=== PATIENT | male | born 1960 | race Caucasian/White ===

== ENCOUNTER 2016-08-12 17:28 | Emergency (ER) | payer MEDICARE ==
[~2016-08-12] VITALS: Ht 157.5 cm; Wt 67.0 kg
[~2016-08-12 17:28] MED LIST: AMLO10TA2 PO; AMLO10TA4 PO; ASPI-621 PO; BACL-19 PO; BRIM5DRO2 OP; BRIN8DRO EACHEYE; Brimonidine Tartrate/Timolol (Combigan Eye Drops) OP; Brinzolamide/Brimonid Tart (Simbrinza 1%-0.2% Eye Drops) EACHEYE; CHOL500015 PO; CIPR500T87 PO; CLOP75TA22 PO; CYAN10008 PO; DOXA8TAB63 PO; GABA100C PO; HYDR-3144 PO; INSU100V8 SQ; LEVO500T33 PO; LIDO30CR TP; LISI-167 PO; LISI-170 PO; LOSA100T6 PO; LOSA50TA6 PO; METO200T3 PO; METO25TA35 PO; METO50TA82 PO; MOXI3DRO2 EACHEYE; ONDA8TAB12 PO; POLY17PO5 PO; SEVE800T8 PO; SPIR50TA PO; TRAM50TA2 PO; TRAV5DRO EACHEYE; TRAV5DRO OP; ZOLP-413 PO
[2016-08-12] MEDS ORDERED: HYDROmorphone 1 MG/ML, 1ML ONE ×2 (17:53→18:07)
[2016-08-12] MEDS ORDERED: ONDANSETRON 2MG/ML, 2ML ONE (17:53)
[2016-08-12] MEDS ORDERED: SODIUM CHLORIDE FLUSH 10ML SYR IVF ONE (18:00)
[2016-08-12] MEDS ORDERED: HYDROmorphone 1 MG/ML, 1ML IVPush ONE (18:00)
[2016-08-12] MEDS ORDERED: OMEP-110 PO (18:12)
[2016-08-12] MEDS ORDERED: HYDR-3343 PO (18:13)
[2016-08-12 18:19] LABS: HEMOGLOBIN 10.4 g/dL (13.7-18.0)
[2016-08-12 18:25] LABS: BLOOD UREA NITROGEN 22 mg/dL (7-18)
[2016-08-12] MEDS ORDERED: HYDROmorphone 2 MG/ML, 1ML IVPush ONE (18:30)
[2016-08-12] MEDS ORDERED: ONDANSETRON 2MG/ML, 2ML IVPush ONE (18:30)
[2016-08-12] MEDS ORDERED: DIAZEPAM 5 MG/ML, 2ML ONE (19:00)
[2016-08-12] MEDS ORDERED: FENTANYL PF 100 MCG/2ML ONE (19:00)
[2016-08-12] MEDS ORDERED: LABETALOL 5MG/ML, 20ML IVPush ONE (19:00)
[2016-08-12] MEDS ORDERED: FENTANYL PF 100 MCG/2ML IVPush ONE (19:00)
[2016-08-12] MEDS ORDERED: DIAZEPAM 5 MG/ML, 2ML IVPush ONE (19:00)
[2016-08-12] MEDS ORDERED: LABETALOL 5MG/ML, 20ML ONE (19:34)
[2016-08-12] MEDS ORDERED: hydrALAzine 20 MG/ML, 1ML ONE (21:56)
[2016-08-12] MEDS ORDERED: hydrALAzine 20 MG/ML, 1ML IV ONE (22:00)
[2016-08-12 22:46] VITALS: BP 165/73
== END 2016-08-12 22:50 | disposition home or self-care (01) ==
LOC: ED 21:22
DX: M54.16 Radiculopathy, lumbar region (principal); M79.604 Pain in right leg; E11.22 Type 2 diabetes mellitus with diabetic chronic kidney disease; I13.2 Hypertensive heart and chronic kidney disease with heart failure and with stage 5 chronic kidney disease, or end stage renal disease; I50.9 Heart failure, unspecified; N18.6 End stage renal disease; I25.10 Atherosclerotic heart disease of native coronary artery without angina pectoris; I25.2 Old myocardial infarction; E11.40 Type 2 diabetes mellitus with diabetic neuropathy, unspecified; Z99.2 Dependence on renal dialysis
CPT/HCPCS: 36415; 70450; 72131; 80048; 82040; 83735; 85025; 96374; 96375; 96376; 99285; J1170; J2405; J3010; J3360

== ENCOUNTER 2016-10-08 17:29 | Emergency (ER) | payer MEDICAID, MEDICARE ==
[~2016-10-08] VITALS: Ht 157.5 cm; Wt 69.3 kg
[~2016-10-08 17:29] MED LIST changes: +HYDR-3343 PO; +OMEP-110 PO
[2016-10-08] MEDS ORDERED: SODIUM CHLORIDE FLUSH 10ML SYR IVF ONE (18:00)
[2016-10-08] MEDS ORDERED: ONDANSETRON 2MG/ML, 2ML IVPush ONE (18:00)
[2016-10-08 18:26] LABS: ASPARTATE AMINO TRANSFERASE 20 U/L (15-37); BLOOD UREA NITROGEN 43 mg/dL (7-18)
[2016-10-08 18:31] LABS: IS PT STATUS REG ER OR PRE ER? YES
[2016-10-08] MEDS ORDERED: ONDANSETRON 2MG/ML, 2ML ONE (19:34)
[2016-10-08 22:15] VITALS: BP 164/65
== END 2016-10-08 22:27 | disposition home or self-care (01) ==
LOC: ED 21:47
DX: I13.2 Hypertensive heart and chronic kidney disease with heart failure and with stage 5 chronic kidney disease, or end stage renal disease (principal); N18.6 End stage renal disease; I50.9 Heart failure, unspecified; R25.1 Tremor, unspecified; E11.40 Type 2 diabetes mellitus with diabetic neuropathy, unspecified; E11.22 Type 2 diabetes mellitus with diabetic chronic kidney disease; I25.2 Old myocardial infarction; Z88.8 Allergy status to other drugs, medicaments and biological substances
CPT/HCPCS: 36415; 71020; 80053; 83605; 84145; 84484; 85025; 87040; 93005; 96374; 99285; J2405

== ENCOUNTER → 2016-11-03 | Outpatient (CLI) | payer MEDICAID, MEDICARE ==
[~2016-11-03] MED LIST changes: +AMINOPHYLLINE 25 MG/ML, 10ML ONE; +REGADENOSON 0.4 MG/5 ML SYRINGE ONE
== END | disposition home or self-care (01) ==
LOC: CFH 06:37
PROVIDERS: ATTEND Nurse Practitioner Family
DX: I25.10 Atherosclerotic heart disease of native coronary artery without angina pectoris (principal); I08.1 Rheumatic disorders of both mitral and tricuspid valves; I10 Essential (primary) hypertension
CPT/HCPCS: 78452; 93017; 93306; A9502; J0280; J2785

== ENCOUNTER 2017-03-01 17:45 | Emergency (ER) | payer MEDICARE ==
[~2017-03-01] VITALS: Ht 157.5 cm; Wt 66.9 kg
[~2017-03-01 17:45] MED LIST changes: -AMINOPHYLLINE 25 MG/ML, 10ML ONE; -CLOP75TA22 PO; +CLOP75TA52 PO; +CYAN100072 PO; -CYAN10008 PO; -HYDR-3144 PO; +HYDR-3245 PO; -LEVO500T33 PO; +LEVO500T47 PO; -METO200T3 PO; +METO200T5 PO; -REGADENOSON 0.4 MG/5 ML SYRINGE ONE
[2017-03-01] MEDS ORDERED: SODIUM CHLORIDE FLUSH 10ML SYR IVF ONE (18:30)
[2017-03-01 18:50] LABS: HEMATOCRIT 34.4 % (39.2-51.8); HEMOGLOBIN 11.4 g/dL (13.7-18.0); WHITE BLOOD COUNT 6.1 x10^3/uL (3.4-10)
[2017-03-01 18:55] LABS: ASPARTATE AMINO TRANSFERASE 19 U/L (15-37); BLOOD UREA NITROGEN 22 mg/dL (7-18)
[2017-03-01] MEDS ORDERED: LIDOCAINE 1%, 20ML ONE (20:05)
[2017-03-01 20:45] VITALS: BP 168/74
== END 2017-03-01 20:48 | disposition home or self-care (01) ==
LOC: ED 20:40
DX: I87.2 Venous insufficiency (chronic) (peripheral) (principal); I13.0 Hypertensive heart and chronic kidney disease with heart failure and stage 1 through stage 4 chronic kidney disease, or unspecified chronic kidney disease; E11.22 Type 2 diabetes mellitus with diabetic chronic kidney disease; N18.9 Chronic kidney disease, unspecified; I50.9 Heart failure, unspecified; E87.5 Hyperkalemia; Z99.2 Dependence on renal dialysis; I25.2 Old myocardial infarction
CPT/HCPCS: 36415; 71010; 80053; 83880; 85025; 93005; 99285

== ENCOUNTER → 2017-04-13 | Outpatient (CLI) | payer MEDICARE | END | disposition home or self-care (01) | LOC: CVU 08:51 | PROVIDERS: ATTEND Internal Medicine Cardiovascular Disease | DX: I87.2 Venous insufficiency (chronic) (peripheral) (principal); L81.8 Other specified disorders of pigmentation | CPT/HCPCS: 93970 ==

== ENCOUNTER → 2017-07-22 | Outpatient (CLI) | payer MEDICARE ==
[~2017-07-22] MED LIST changes: +LIDOCAINE 1%, 20ML ONE; +METO200T47 PO; -METO200T5 PO
== END | disposition home or self-care (01) ==
LOC: RAD 12:00
PROVIDERS: ATTEND Family Medicine
DX: R18.8 Other ascites (principal); R14.0 Abdominal distension (gaseous)
CPT/HCPCS: 49083; J3490

== ENCOUNTER → 2017-08-26 | Outpatient (CLI) | payer MEDICARE ==
[~2017-08-26] MED LIST changes: -LIDOCAINE 1%, 20ML ONE; +LIDOCAINE-MPF 1%, 5ML ONE
== END ==
LOC: RAD 13:19
PROVIDERS: ATTEND Radiology Diagnostic Radiology
DX: R18.8 Other ascites (principal)
CPT/HCPCS: 49083

== ENCOUNTER → 2017-10-28 | Outpatient (CLI) | payer MEDICARE ==
[~2017-10-28] MED LIST changes: +LIDOCAINE-MPF 1%, 2ML ONE; -LIDOCAINE-MPF 1%, 5ML ONE
== END | disposition home or self-care (01) ==
LOC: RAD 13:32
PROVIDERS: ATTEND Physician Assistant
DX: N17.9 Acute kidney failure, unspecified (principal); I50.9 Heart failure, unspecified; R18.8 Other ascites
CPT/HCPCS: 49083; J3490

== ENCOUNTER 2017-11-02 20:52 | Emergency (ER) | payer MEDICARE ==
[~2017-11-02] VITALS: Ht 165.1 cm; Wt 63.0 kg
[~2017-11-02 20:52] MED LIST changes: -LIDOCAINE-MPF 1%, 2ML ONE
[2017-11-02] MEDS ORDERED: PROMETHAZINE 25 MG/ML, 1ML ONE (21:42)
[2017-11-02] MEDS ORDERED: MORPHINE SULFATE 4 MG/ML, 1ML ONE (21:43)
[2017-11-02] MEDS ORDERED: PROMETHAZINE 25 MG/ML, 1ML IM ONE (22:00)
[2017-11-02] MEDS ORDERED: MORPHINE SULFATE 4 MG/ML, 1ML IVPush PRN (22:00)
[2017-11-02 22:02] LABS: BASOPHILS # (AUTO) 0.02 x10^3/uL (0-0.1); BASOPHILS % (AUTO) 0 % (0-1); EOSINOPHILS # (AUTO) 0.01 x10^3/uL (0-0.4); EOSINOPHILS % (AUTO) 0 % (1-7); LYMPHOCYTES # (AUTO) 0.75 x10^3/uL (1-3.4); LYMPHOCYTES % (AUTO) 13 % (22-44); MD NO; MEAN CORPUSCULAR HEMOGLOBIN 32.9 pg (27.5-34.5); MEAN CORPUSCULAR HGB CONC 33.4 g/dL (33.2-36.2); MEAN CORPUSCULAR VOLUME 98.6 fL (81-97); MEAN PLATELET VOLUME 7.8 fL (7.4-10.4); MONOCYTES # (AUTO) 0.37 x10^3/uL (0.2-0.8); MONOCYTES % (AUTO) 7 % (2-9); NEUTROPHILS # (AUTO) 4.57 x10^3/uL (1.8-6.8); NEUTROPHILS % (AUTO) 80 % (42-75); PLATELET COUNT 151 x10^3/uL (130-400); RED BLOOD COUNT 3.35 x10^6/uL (4.38-5.82); RED CELL DISTRIBUTION WIDTH 15.4 % (9.4-14.8)
[2017-11-02 22:17] LABS: ALANINE AMINOTRANSFERASE 20 U/L (12-78); ALBUMIN 3.7 g/dL (3.4-5.0); ANION GAP 11 mmol/L (5-15); CALCIUM 8.3 mg/dL (8.5-10.1); CHLORIDE 93 mmol/L (98-107)
[2017-11-02 22:19] LABS: ALKALINE PHOSPHATASE 133 U/L (45-117); BILIRUBIN,TOTAL 0.5 mg/dL (0.2-1.0); TOTAL PROTEIN 7.5 g/dL (6.4-8.2)
[2017-11-02] MEDS ORDERED: hydrALAzine 20 MG/ML, 1ML ONE (22:57)
[2017-11-02] MEDS ORDERED: hydrALAzine 20 MG/ML, 1ML IV ONE (23:00)
[2017-11-02] MEDS ORDERED: OXYC10TA6 PO (23:13)
[2017-11-02] MEDS ORDERED: ATOR20TA PO (23:13)
[2017-11-02] MEDS ORDERED: FLUO20CA8 PO (23:13)
[2017-11-02] MEDS ORDERED: CARV3.1212 PO (23:13)
[2017-11-02] MEDS ORDERED: ASPI-515 PO (23:13)
[2017-11-03 00:10] VITALS: BP 167/67
== END 2017-11-03 00:21 | disposition home or self-care (01) ==
LOC: ED 22:02
DX: I13.2 Hypertensive heart and chronic kidney disease with heart failure and with stage 5 chronic kidney disease, or end stage renal disease (principal); R11.2 Nausea with vomiting, unspecified; E11.22 Type 2 diabetes mellitus with diabetic chronic kidney disease; N18.6 End stage renal disease; I50.9 Heart failure, unspecified; I25.2 Old myocardial infarction; I25.10 Atherosclerotic heart disease of native coronary artery without angina pectoris; E11.40 Type 2 diabetes mellitus with diabetic neuropathy, unspecified; E87.5 Hyperkalemia; E11.21 Type 2 diabetes mellitus with diabetic nephropathy; Z99.2 Dependence on renal dialysis; Z88.8 Allergy status to other drugs, medicaments and biological substances
CPT/HCPCS: 36415; 70450; 71045; 80053; 83690; 85025; 93005; 96372; 96374; 96375; 99285; J0360; J2550

== ENCOUNTER 2017-11-03 14:08 | Inpatient (IN) | payer MEDICARE ==
[~2017-11-03] VITALS: Ht 154.9 cm; Wt 63.0 kg
[~2017-11-03 14:08] MED LIST changes: +ASPI-515 PO; +ATOR20TA PO; +CARV3.1212 PO; +FLUO20CA8 PO; +OXYC10TA6 PO
[2017-11-03] MEDS ORDERED: METOCLOPRAMIDE 5 MG/ML, 2ML ONE (14:38)
[2017-11-03] MEDS ORDERED: DIPHENHYDRAMINE 50 MG/ML, 1ML ONE (14:38)
[2017-11-03] MEDS ORDERED: SODIUM CHLORIDE 0.9% 1,000ML IVBOLUS ONE (15:00)
[2017-11-03] MEDS ORDERED: DIPHENHYDRAMINE 50 MG/ML, 1ML IVPush ONE (15:00)
[2017-11-03] MEDS ORDERED: METOCLOPRAMIDE 5 MG/ML, 2ML IVPush ONE (15:00)
[2017-11-03 15:10] LABS: BASOPHILS # (AUTO) 0.01 x10^3/uL (0-0.1); BASOPHILS % (AUTO) 0 % (0-1); EOSINOPHILS # (AUTO) 0.01 x10^3/uL (0-0.4); EOSINOPHILS % (AUTO) 0 % (1-7); LYMPHOCYTES # (AUTO) 0.61 x10^3/uL (1-3.4); LYMPHOCYTES % (AUTO) 10 % (22-44); MD NO; MEAN CORPUSCULAR HEMOGLOBIN 33.3 pg (27.5-34.5); MEAN CORPUSCULAR HGB CONC 33.8 g/dL (33.2-36.2); MEAN CORPUSCULAR VOLUME 98.8 fL (81-97); MEAN PLATELET VOLUME 8.2 fL (7.4-10.4); MONOCYTES # (AUTO) 0.27 x10^3/uL (0.2-0.8); MONOCYTES % (AUTO) 4 % (2-9); NEUTROPHILS # (AUTO) 5.53 x10^3/uL (1.8-6.8); NEUTROPHILS % (AUTO) 86 % (42-75); PLATELET COUNT 156 x10^3/uL (130-400); RED BLOOD COUNT 3.26 x10^6/uL (4.38-5.82); RED CELL DISTRIBUTION WIDTH 15.4 % (9.4-14.8)
[2017-11-03 15:19] LABS: ALANINE AMINOTRANSFERASE 19 U/L (12-78); ALBUMIN 3.6 g/dL (3.4-5.0); ANION GAP 11 mmol/L (5-15); CALCIUM 8.9 mg/dL (8.5-10.1); CHLORIDE 95 mmol/L (98-107); CREATININE 5.67 mg/dL (0.7-1.3)
[2017-11-03 15:23] LABS: ALKALINE PHOSPHATASE 124 U/L (45-117); BILIRUBIN,TOTAL 0.6 mg/dL (0.2-1.0); TOTAL PROTEIN 7.6 g/dL (6.4-8.2); TROPONIN I 0.069 ng/mL (0.000-0.045)
[2017-11-03] MEDS ORDERED: LABETALOL 5MG/ML, 20ML IVPush ONE (17:00)
[2017-11-03] MEDS ORDERED: LABETALOL 5MG/ML, 20ML ONE (17:02)
[2017-11-03] MEDS: MORPHINE SULFATE 4 MG/ML, 1ML IVPush PRN ×2 (17:03→17:43)
[2017-11-03] MEDS ORDERED: MORPHINE SULFATE 4 MG/ML, 1ML ONE ×2 (17:03→17:41)
[2017-11-03] MEDS ORDERED: LISINOPRIL 20 MG TABLET PO ONE (18:00)
[2017-11-03] MEDS ORDERED: POLYETHYLENE GLYCOL 17 GM PACKET PO PRN (18:00)
[2017-11-03 18:24] LABS: FREE T4 (FREE THYROXINE) 1.18 ng/dL (0.76-1.46); TROPONIN I 0.075 ng/mL (0.000-0.045)
[2017-11-03 18:30] LABS: INTERNATIONAL NORMALIZED RATIO 1.16 (0.93-1.1); PROTHROMBIN TIME 11.9 Seconds (9.6-11.5)
[2017-11-03 18:44] LABS: THYROID STIMULATING HORMONE 1.71 mIU/L (0.358-3.740)
[2017-11-03] MEDS ORDERED: LISINOPRIL 20 MG TABLET ONE (18:52)
[2017-11-03] MEDS ORDERED: HEPARIN 5,000 UNITS/ML, 1ML ONE (18:52)
[2017-11-03] MEDS: HEPARIN 5,000 UNITS/ML, 1ML SQ SCH (18:54)
[2017-11-03 19:49] VITALS: BP 196/82
[2017-11-03] MEDS: DOXAZOSIN 2MG TABLET PO SCH (20:37)
[2017-11-03] MEDS: ATORVASTATIN 20 MG TABLET PO SCH (20:37)
[2017-11-03] MEDS: hydrALAzine 20 MG/ML, 1ML IV PRN (20:38)
[2017-11-03 20:42] VITALS: BP 192/79
[2017-11-03] MEDS ORDERED: CARVEDILOL 3.125 MG TABLET PO SCH (21:00)
[2017-11-03] MEDS ORDERED: LISINOPRIL 20 MG TABLET PO SCH (21:00)
[2017-11-03] MEDS: ONDANSETRON 2MG/ML, 2ML IVPush PRN (21:14)
[2017-11-03 21:56] VITALS: BP 195/77
[2017-11-04] VITALS (11 sets, daily range): BP systolic 161–197; BP diastolic 52–74
[2017-11-04] MEDS: LABETALOL 5MG/ML, 20ML IVPush PRN ×3 (00:48→16:40)
[2017-11-04] MEDS: HEPARIN 5,000 UNITS/ML, 1ML SQ SCH ×3 (01:48→17:40)
[2017-11-04] MEDS: hydrALAzine 20 MG/ML, 1ML IV PRN ×3 (04:32→13:30)
[2017-11-04] MEDS ORDERED: MORPHINE SULFATE 4 MG/ML, 1ML ONE (05:00)
[2017-11-04] MEDS ORDERED: MORPHINE SULFATE 4 MG/ML, 1ML IVPush ONE ×2 (05:00→12:09)
[2017-11-04 05:45] LABS: BASOPHILS # (AUTO) 0.02 x10^3/uL (0-0.1); BASOPHILS % (AUTO) 0 % (0-1); EOSINOPHILS # (AUTO) 0.02 x10^3/uL (0-0.4); EOSINOPHILS % (AUTO) 0 % (1-7); LYMPHOCYTES # (AUTO) 0.91 x10^3/uL (1-3.4); LYMPHOCYTES % (AUTO) 14 % (22-44); MD NO; MEAN CORPUSCULAR HEMOGLOBIN 33.3 pg (27.5-34.5); MEAN CORPUSCULAR HGB CONC 33.8 g/dL (33.2-36.2); MEAN CORPUSCULAR VOLUME 98.6 fL (81-97); MEAN PLATELET VOLUME 7.9 fL (7.4-10.4); MONOCYTES # (AUTO) 0.44 x10^3/uL (0.2-0.8); MONOCYTES % (AUTO) 7 % (2-9); NEUTROPHILS # (AUTO) 5.36 x10^3/uL (1.8-6.8); NEUTROPHILS % (AUTO) 79 % (42-75); PLATELET COUNT 135 x10^3/uL (130-400); RED BLOOD COUNT 3.22 x10^6/uL (4.38-5.82); RED CELL DISTRIBUTION WIDTH 15.6 % (9.4-14.8)
[2017-11-04 05:56] LABS: CHLORIDE 94 mmol/L (98-107)
[2017-11-04] MEDS ORDERED: hydrALAzine 20 MG/ML, 1ML IV ONE (06:00)
[2017-11-04 06:13] LABS: ALANINE AMINOTRANSFERASE 20 U/L (12-78); ALBUMIN 3.5 g/dL (3.4-5.0); ALKALINE PHOSPHATASE 119 U/L (45-117); ANION GAP 11 mmol/L (5-15); BILIRUBIN,TOTAL 0.7 mg/dL (0.2-1.0); CALCIUM 8.3 mg/dL (8.5-10.1); TOTAL PROTEIN 7.4 g/dL (6.4-8.2)
[2017-11-04] MEDS: ONDANSETRON 2MG/ML, 2ML IVPush PRN ×2 (06:16→14:20)
[2017-11-04] MEDS: OXYcodone IR 5MG TABLET PO SCH ×3 (08:14→21:29)
[2017-11-04] MEDS: SEVELAMER CARBONATE 800MG TAB PO SCH ×4 (08:19→17:00)
[2017-11-04] MEDS: FLUOXETINE HCL 20 MG CAPSULE PO SCH (08:20)
[2017-11-04] MEDS: SENNA/DOCUSATE TABLET PO SCH (08:20)
[2017-11-04] MEDS: ASPIRIN 81 MG TABLET EC PO SCH (08:20)
[2017-11-04] MEDS: ONDANSETRON ODT 4 MG PO PRN (08:22)
[2017-11-04] MEDS ORDERED: LISINOPRIL 20 MG TABLET PO SCH (09:00)
[2017-11-04] MEDS: INSULIN LISPRO 100 UNITS/ML, PEN SQ-INSULIN SCH ×3 (09:31→21:31)
[2017-11-04] MEDS: CARVEDILOL 25 MG TABLET PO SCH ×2 (11:34→21:29)
[2017-11-04] MEDS: AMLODIPINE 5 MG TABLET PO SCH (11:36)
[2017-11-04] MEDS ORDERED: morphine SULFATE 10 MG/ML, 1ML ONE (12:10)
[2017-11-04] MEDS ORDERED: DIPHENHYDRAMINE 50 MG/ML, 1ML IVPush ONE (15:30)
[2017-11-04] MEDS ORDERED: KETOROLAC 30 MG/1 ML IM SCH (15:30)
[2017-11-04] MEDS ORDERED: METOCLOPRAMIDE 5 MG/ML, 2ML IVPush ONE (15:30)
[2017-11-04] MEDS ORDERED: MORPHINE SULFATE 4 MG/ML, 1ML IVPush PRN (15:30)
[2017-11-04] MEDS ORDERED: KETOROLAC 30 MG/1 ML IM ONE (15:30)
[2017-11-04] MEDS: ISOSORBIDE MONONITRATE ER 30 MG TABLET PO SCH (15:48)
[2017-11-04] MEDS ORDERED: LORazepam 2 MG/ML, 1ML IVPush ONE (17:30)
[2017-11-04] MEDS: DOXAZOSIN 2MG TABLET PO SCH (21:28)
[2017-11-04] MEDS: LOSARTAN 50MG TABLET PO SCH (21:29)
[2017-11-04] MEDS: ATORVASTATIN 20 MG TABLET PO SCH (21:29)
[2017-11-05] VITALS (7 sets, daily range): BP systolic 93–189; BP diastolic 53–79
[2017-11-05] MEDS: HEPARIN 5,000 UNITS/ML, 1ML SQ SCH ×3 (01:59→18:23)
[2017-11-05 06:26] LABS: BASOPHILS # (AUTO) 0.01 x10^3/uL (0-0.1); BASOPHILS % (AUTO) 0 % (0-1); EOSINOPHILS # (AUTO) 0.01 x10^3/uL (0-0.4); EOSINOPHILS % (AUTO) 0 % (1-7); LYMPHOCYTES # (AUTO) 0.81 x10^3/uL (1-3.4); LYMPHOCYTES % (AUTO) 11 % (22-44); MD NO; MEAN CORPUSCULAR HEMOGLOBIN 32.7 pg (27.5-34.5); MEAN CORPUSCULAR VOLUME 99.1 fL (81-97); MEAN PLATELET VOLUME 8.3 fL (7.4-10.4); MONOCYTES # (AUTO) 0.49 x10^3/uL (0.2-0.8); MONOCYTES % (AUTO) 7 % (2-9); NEUTROPHILS % (AUTO) 81 % (42-75); PLATELET COUNT 136 x10^3/uL (130-400); RED BLOOD COUNT 3.17 x10^6/uL (4.38-5.82); RED CELL DISTRIBUTION WIDTH 15.5 % (9.4-14.8)
[2017-11-05 06:38] LABS: ALBUMIN 3.6 g/dL (3.4-5.0); ANION GAP 10 mmol/L (5-15); CALCIUM 8.7 mg/dL (8.5-10.1); CHLORIDE 98 mmol/L (98-107)
[2017-11-05 06:42] LABS: ALANINE AMINOTRANSFERASE 19 U/L (12-78); ALKALINE PHOSPHATASE 115 U/L (45-117); BILIRUBIN,TOTAL 0.7 mg/dL (0.2-1.0); CREATININE 4.94 mg/dL (0.7-1.3); TOTAL PROTEIN 7.3 g/dL (6.4-8.2)
[2017-11-05] MEDS: CARVEDILOL 25 MG TABLET PO SCH ×2 (07:46→21:00)
[2017-11-05] MEDS: AMLODIPINE 5 MG TABLET PO SCH (07:47)
[2017-11-05] MEDS: SEVELAMER CARBONATE 800MG TAB PO SCH ×3 (08:00→18:22)
[2017-11-05] MEDS: ISOSORBIDE MONONITRATE ER 30 MG TABLET PO SCH (09:00)
[2017-11-05] MEDS: OXYcodone IR 5MG TABLET PO SCH ×3 (09:00→20:58)
[2017-11-05] MEDS: SENNA/DOCUSATE TABLET PO SCH (09:00)
[2017-11-05] MEDS: ASPIRIN 81 MG TABLET EC PO SCH (09:00)
[2017-11-05] MEDS: ONDANSETRON ODT 4 MG PO PRN (09:17)
[2017-11-05] MEDS: INSULIN LISPRO 100 UNITS/ML, PEN SQ-INSULIN SCH ×4 (10:39→21:00)
[2017-11-05] MEDS: FLUOXETINE HCL 20 MG CAPSULE PO SCH (10:40)
[2017-11-05] MEDS: hydrALAzine 20 MG/ML, 1ML IV PRN (11:09)
[2017-11-05] MEDS ORDERED: morphine SULFATE/PF 0.5 MG/ML, 10ML IV PRN (11:30)
[2017-11-05] MEDS: LABETALOL 5MG/ML, 20ML IVPush PRN (12:33)
[2017-11-05] MEDS: DOXAZOSIN 2MG TABLET PO SCH (20:57)
[2017-11-05] MEDS: ATORVASTATIN 20 MG TABLET PO SCH (20:57)
[2017-11-05] MEDS: LOSARTAN 50MG TABLET PO SCH (20:58)
[2017-11-06] VITALS (7 sets, daily range): BP systolic 145–186; BP diastolic 57–69
[2017-11-06] MEDS: ONDANSETRON 2MG/ML, 2ML IVPush PRN (01:12)
[2017-11-06] MEDS: HEPARIN 5,000 UNITS/ML, 1ML SQ SCH ×3 (02:26→17:31)
[2017-11-06 05:12] LABS: BASOPHILS % (AUTO) 0 % (0-1); EOSINOPHILS # (AUTO) 0.02 x10^3/uL (0-0.4); EOSINOPHILS % (AUTO) 0 % (1-7); LYMPHOCYTES # (AUTO) 0.61 x10^3/uL (1-3.4); LYMPHOCYTES % (AUTO) 8 % (22-44); MD NO; MEAN CORPUSCULAR HEMOGLOBIN 33.2 pg (27.5-34.5); MEAN CORPUSCULAR HGB CONC 33.7 g/dL (33.2-36.2); MEAN CORPUSCULAR VOLUME 98.6 fL (81-97); MEAN PLATELET VOLUME 8.6 fL (7.4-10.4); MONOCYTES # (AUTO) 0.46 x10^3/uL (0.2-0.8); MONOCYTES % (AUTO) 6 % (2-9); NEUTROPHILS # (AUTO) 6.47 x10^3/uL (1.8-6.8); NEUTROPHILS % (AUTO) 86 % (42-75); PLATELET COUNT 131 x10^3/uL (130-400); RED BLOOD COUNT 3.25 x10^6/uL (4.38-5.82); RED CELL DISTRIBUTION WIDTH 15.4 % (9.4-14.8)
[2017-11-06 05:22] LABS: CHLORIDE 95 mmol/L (98-107)
[2017-11-06 05:34] LABS: ALANINE AMINOTRANSFERASE 20 U/L (12-78); ALBUMIN 3.4 g/dL (3.4-5.0); ALKALINE PHOSPHATASE 109 U/L (45-117); ANION GAP 12 mmol/L (5-15); BILIRUBIN,TOTAL 0.8 mg/dL (0.2-1.0); CALCIUM 8.5 mg/dL (8.5-10.1); CREATININE 5.74 mg/dL (0.7-1.3); TOTAL PROTEIN 7.1 g/dL (6.4-8.2)
[2017-11-06] MEDS: CARVEDILOL 25 MG TABLET PO SCH ×2 (08:37→21:00)
[2017-11-06] MEDS: INSULIN LISPRO 100 UNITS/ML, PEN SQ-INSULIN SCH ×4 (08:48→21:19)
[2017-11-06] MEDS: SEVELAMER CARBONATE 800MG TAB PO SCH ×2 (08:49→13:45)
[2017-11-06] MEDS: ASPIRIN 81 MG TABLET EC PO SCH (08:49)
[2017-11-06] MEDS: SENNA/DOCUSATE TABLET PO SCH (08:49)
[2017-11-06] MEDS: OXYcodone IR 5MG TABLET PO SCH ×3 (08:50→21:19)
[2017-11-06] MEDS: AMLODIPINE 5 MG TABLET PO SCH (08:50)
[2017-11-06] MEDS: FLUOXETINE HCL 20 MG CAPSULE PO SCH (08:51)
[2017-11-06] MEDS ORDERED: ISOSORBIDE MONONITRATE ER 30 MG TABLET PO SCH (09:00)
[2017-11-06] MEDS ORDERED: OMEPRAZOLE 20 MG CAPSULE.DR PO PRN ×2 (16:00→17:30)
[2017-11-06] MEDS ORDERED: SEVELAMER CARBONATE 800MG TAB ONE ×2 (17:16→17:17)
[2017-11-06] MEDS ORDERED: OXYcodone IR 5MG TABLET ONE (17:16)
[2017-11-06] MEDS ORDERED: ONDANSETRON ODT 4 MG PO PRN (17:30)
[2017-11-06] MEDS ORDERED: hydrALAzine 20 MG/ML, 1ML IV PRN (17:30)
[2017-11-06] MEDS ORDERED: morphine SULFATE/PF 0.5 MG/ML, 10ML IV PRN (18:00)
[2017-11-06] MEDS ORDERED: MORPHINE SULFATE 4 MG/ML, 1ML IVPush PRN (18:00)
[2017-11-06] MEDS ORDERED: ONDANSETRON 2MG/ML, 2ML IVPush PRN (18:00)
[2017-11-06] MEDS ORDERED: LABETALOL 5MG/ML, 20ML IVPush PRN (21:00)
[2017-11-06] MEDS: LOSARTAN 50MG TABLET PO SCH (21:17)
[2017-11-06] MEDS: ATORVASTATIN 20 MG TABLET PO SCH (21:18)
[2017-11-06] MEDS: DOXAZOSIN 2MG TABLET PO SCH (21:18)
[2017-11-06] MEDS: POLYETHYLENE GLYCOL 17 GM PACKET PO PRN (21:26)
[2017-11-07 00:37] VITALS: BP 167/75
[2017-11-07] MEDS: MORPHINE SULFATE 4 MG/ML, 1ML IV PRN ×3 (01:02→11:33)
[2017-11-07] MEDS: HEPARIN 5,000 UNITS/ML, 1ML SQ SCH ×2 (01:02→08:44)
[2017-11-07] MEDS ORDERED: ACETAMINOPHEN 500 MG TABLET PO ONE (03:30)
[2017-11-07 05:14] LABS: BASOPHILS # (AUTO) 0.02 x10^3/uL (0-0.1); BASOPHILS % (AUTO) 0 % (0-1); EOSINOPHILS # (AUTO) 0.03 x10^3/uL (0-0.4); EOSINOPHILS % (AUTO) 0 % (1-7); LYMPHOCYTES # (AUTO) 0.63 x10^3/uL (1-3.4); LYMPHOCYTES % (AUTO) 10 % (22-44); MD NO; MEAN CORPUSCULAR HGB CONC 34.9 g/dL (33.2-36.2); MEAN CORPUSCULAR VOLUME 97.3 fL (81-97); MEAN PLATELET VOLUME 8.6 fL (7.4-10.4); MONOCYTES # (AUTO) 0.39 x10^3/uL (0.2-0.8); MONOCYTES % (AUTO) 6 % (2-9); NEUTROPHILS # (AUTO) 5.51 x10^3/uL (1.8-6.8); NEUTROPHILS % (AUTO) 84 % (42-75); PLATELET COUNT 132 x10^3/uL (130-400); RED BLOOD COUNT 3.27 x10^6/uL (4.38-5.82); RED CELL DISTRIBUTION WIDTH 15.1 % (9.4-14.8)
[2017-11-07 05:26] LABS: ALBUMIN 3.3 g/dL (3.4-5.0); ANION GAP 12 mmol/L (5-15); CALCIUM 8.8 mg/dL (8.5-10.1); CHLORIDE 96 mmol/L (98-107)
[2017-11-07 05:32] LABS: ALANINE AMINOTRANSFERASE 18 U/L (12-78); ALKALINE PHOSPHATASE 104 U/L (45-117); BILIRUBIN,TOTAL 0.5 mg/dL (0.2-1.0); CREATININE 7.38 mg/dL (0.7-1.3); TOTAL PROTEIN 6.9 g/dL (6.4-8.2)
[2017-11-07 07:22] VITALS: BP 172/70
[2017-11-07] MEDS: INSULIN LISPRO 100 UNITS/ML, PEN SQ-INSULIN SCH ×4 (07:52→20:44)
[2017-11-07] MEDS: OXYcodone IR 5MG TABLET PO SCH ×3 (07:53→20:44)
[2017-11-07] MEDS: FLUOXETINE HCL 20 MG CAPSULE PO SCH (07:53)
[2017-11-07] MEDS: ASPIRIN 81 MG TABLET EC PO SCH (07:53)
[2017-11-07] MEDS: SENNA/DOCUSATE TABLET PO SCH (07:54)
[2017-11-07] MEDS: CARVEDILOL 25 MG TABLET PO SCH ×2 (08:39→20:44)
[2017-11-07 08:45] VITALS: BP 160/66
[2017-11-07] MEDS ORDERED: AMLODIPINE 5 MG TABLET PO SCH (09:00)
[2017-11-07] MEDS ORDERED: ISOSORBIDE MONONITRATE ER 30 MG TABLET PO SCH (09:00)
[2017-11-07 12:00] VITALS: BP 151/59
[2017-11-07] MEDS ORDERED: LIDOCAINE-MPF 1%, 2ML ONE (13:18)
[2017-11-07] MEDS: SEVELAMER CARBONATE 800MG TAB PO SCH (17:00)
[2017-11-07 20:00] VITALS: BP 157/66
[2017-11-07] MEDS: DOXAZOSIN 2MG TABLET PO SCH (20:42)
[2017-11-07] MEDS: LOSARTAN 50MG TABLET PO SCH (20:43)
[2017-11-07] MEDS: ATORVASTATIN 20 MG TABLET PO SCH (20:43)
[2017-11-07] MEDS: MINOXIDIL 2.5 MG TABLET PO SCH (20:48)
[2017-11-08] VITALS (9 sets, daily range): BP systolic 135–185; BP diastolic 56–72
[2017-11-08] MEDS: MORPHINE SULFATE 4 MG/ML, 1ML IV PRN ×2 (00:31→17:33)
[2017-11-08] MEDS: SEVELAMER CARBONATE 800MG TAB PO SCH ×4 (08:00→17:00)
[2017-11-08] MEDS ORDERED: NALOXONE 1 MG/ML, 2ML ONE (08:00)
[2017-11-08] MEDS: ASPIRIN 81 MG TABLET EC PO SCH (08:32)
[2017-11-08] MEDS: INSULIN LISPRO 100 UNITS/ML, PEN SQ-INSULIN SCH ×4 (08:38→21:01)
[2017-11-08] MEDS: OXYcodone IR 5MG TABLET PO SCH ×2 (08:39→16:00)
[2017-11-08] MEDS: MINOXIDIL 2.5 MG TABLET PO SCH (08:39)
[2017-11-08] MEDS: FLUOXETINE HCL 20 MG CAPSULE PO SCH (08:39)
[2017-11-08] MEDS: SENNA/DOCUSATE TABLET PO SCH (08:39)
[2017-11-08] MEDS: CARVEDILOL 25 MG TABLET PO SCH ×2 (08:43→20:46)
[2017-11-08] MEDS: ONDANSETRON ODT 4 MG PO SCH ×3 (12:30→22:55)
[2017-11-08] MEDS ORDERED: LIDOCAINE-MPF 1%, 2ML ONE (13:26)
[2017-11-08 16:02] LABS: GLUCOSE, CSF 89 mg/dL (40-80); TOTAL PROTEIN,CSF 625 mg/dL (15-45)
[2017-11-08] MEDS: HEPARIN 5,000 UNITS/ML, 1ML SQ SCH ×2 (17:00→22:47)
[2017-11-08] MEDS ORDERED: ONDANSETRON 2MG/ML, 2ML ONE (17:52)
[2017-11-08] MEDS ORDERED: ONDANSETRON 2MG/ML, 2ML IVPush PRN (18:00)
[2017-11-08] MEDS ORDERED: hydrALAzine 20 MG/ML, 1ML IV PRN (18:30)
[2017-11-08 18:38] LABS: BASOPHILS # (AUTO) 0.05 x10^3/uL (0-0.1); BASOPHILS % (AUTO) 1 % (0-1); EOSINOPHILS # (AUTO) 0.07 x10^3/uL (0-0.4); EOSINOPHILS % (AUTO) 1 % (1-7); LYMPHOCYTES # (AUTO) 1.07 x10^3/uL (1-3.4); LYMPHOCYTES % (AUTO) 16 % (22-44); MD NO; MEAN CORPUSCULAR HEMOGLOBIN 33.6 pg (27.5-34.5); MEAN CORPUSCULAR HGB CONC 34.4 g/dL (33.2-36.2); MEAN CORPUSCULAR VOLUME 97.5 fL (81-97); MEAN PLATELET VOLUME 9.1 fL (7.4-10.4); MONOCYTES # (AUTO) 0.43 x10^3/uL (0.2-0.8); MONOCYTES % (AUTO) 7 % (2-9); NEUTROPHILS # (AUTO) 4.96 x10^3/uL (1.8-6.8); NEUTROPHILS % (AUTO) 75 % (42-75); PLATELET COUNT 143 x10^3/uL (130-400); RED BLOOD COUNT 3.65 x10^6/uL (4.38-5.82); RED CELL DISTRIBUTION WIDTH 14.6 % (9.4-14.8)
[2017-11-08 18:44] LABS: ALANINE AMINOTRANSFERASE 16 U/L (12-78); ALBUMIN 3.7 g/dL (3.4-5.0); ANION GAP 15 mmol/L (5-15); CALCIUM 9.2 mg/dL (8.5-10.1); CHLORIDE 97 mmol/L (98-107); CREATININE 5.75 mg/dL (0.7-1.3)
[2017-11-08 18:48] LABS: ALKALINE PHOSPHATASE 123 U/L (45-117); BILIRUBIN,TOTAL 0.6 mg/dL (0.2-1.0); TOTAL PROTEIN 7.7 g/dL (6.4-8.2); TROPONIN I 0.037 ng/mL (0.000-0.045)
[2017-11-08] MEDS: ATORVASTATIN 20 MG TABLET PO SCH (20:46)
[2017-11-08] MEDS: LOSARTAN 50MG TABLET PO SCH (20:46)
[2017-11-08] MEDS: DOXAZOSIN 2MG TABLET PO SCH (20:46)
[2017-11-08] MEDS: CEFTRIAXONE PMX 2GM/50ML 50 ML IV SCH (21:01)
[2017-11-08] MEDS: ACYCLOVIR 600 MG in SODIUM CHLORIDE 0.9% 100 ML IV SCH (22:24)
[2017-11-08] MEDS ORDERED: ACETAMINOPHEN 325 MG TABLET PO PRN (23:00)
[2017-11-08] MEDS: POLYETHYLENE GLYCOL 17 GM PACKET PO PRN (23:06)
[2017-11-09 01:27] VITALS: BP 168/60
[2017-11-09 04:39] LABS: BASOPHILS # (AUTO) 0.01 x10^3/uL (0-0.1); BASOPHILS % (AUTO) 0 % (0-1); EOSINOPHILS # (AUTO) 0.02 x10^3/uL (0-0.4); EOSINOPHILS % (AUTO) 0 % (1-7); LYMPHOCYTES % (AUTO) 6 % (22-44); MD NO; MEAN CORPUSCULAR HEMOGLOBIN 32.8 pg (27.5-34.5); MEAN CORPUSCULAR HGB CONC 33.9 g/dL (33.2-36.2); MEAN CORPUSCULAR VOLUME 96.7 fL (81-97); MEAN PLATELET VOLUME 8.8 fL (7.4-10.4); MONOCYTES # (AUTO) 0.45 x10^3/uL (0.2-0.8); MONOCYTES % (AUTO) 5 % (2-9); NEUTROPHILS # (AUTO) 8.63 x10^3/uL (1.8-6.8); NEUTROPHILS % (AUTO) 89 % (42-75); PLATELET COUNT 146 x10^3/uL (130-400); RED CELL DISTRIBUTION WIDTH 15.3 % (9.4-14.8)
[2017-11-09 04:52] LABS: ALBUMIN 3.3 g/dL (3.4-5.0); ANION GAP 12 mmol/L (5-15); CALCIUM 8.5 mg/dL (8.5-10.1); CHLORIDE 96 mmol/L (98-107)
[2017-11-09 04:59] LABS: ALANINE AMINOTRANSFERASE 16 U/L (12-78); ALKALINE PHOSPHATASE 111 U/L (45-117); BILIRUBIN,TOTAL 0.9 mg/dL (0.2-1.0); CREATININE 7.04 mg/dL (0.7-1.3)
[2017-11-09] MEDS: ACYCLOVIR 600 MG in SODIUM CHLORIDE 0.9% 100 ML IV SCH (06:11)
[2017-11-09] MEDS: INSULIN LISPRO 100 UNITS/ML, PEN SQ-INSULIN SCH ×3 (07:00→16:00)
[2017-11-09 07:35] VITALS: BP 157/62
[2017-11-09] MEDS: SEVELAMER CARBONATE 800MG TAB PO SCH ×3 (08:01→17:00)
[2017-11-09] MEDS: ASPIRIN 81 MG TABLET EC PO SCH (08:02)
[2017-11-09] MEDS: FLUOXETINE HCL 20 MG CAPSULE PO SCH (08:02)
[2017-11-09] MEDS: CARVEDILOL 25 MG TABLET PO SCH (08:02)
[2017-11-09] MEDS: ONDANSETRON ODT 4 MG PO SCH ×2 (08:02→16:00)
[2017-11-09] MEDS: SENNA/DOCUSATE TABLET PO SCH (08:02)
[2017-11-09] MEDS: HEPARIN 5,000 UNITS/ML, 1ML SQ SCH ×2 (08:03→17:00)
[2017-11-09] MEDS: CEFTRIAXONE PMX 2GM/50ML 50 ML IV SCH (08:03)
[2017-11-09] MEDS ORDERED: TAMSULOSIN 0.4 MG CAP.ER.24H PO SCH (09:00)
[2017-11-09 13:01] LABS: HCT (SEDRATE) 34.7 % (39.2-51.8)
[2017-11-09 14:00] VITALS: BP 157/65
[2017-11-09] MEDS ORDERED: HYDR-3343 PO (14:39)
[2017-11-09] MEDS ORDERED: LOSA50TA2 PO (14:39)
[2017-11-09] MEDS ORDERED: CARV25TA12 PO (14:39)
[2017-11-09] MEDS ORDERED: DOXA2TAB9 PO (14:39)
[2017-11-09] MEDS ORDERED: TAMS-11 PO (14:39)
[2017-11-09] MEDS ORDERED: PHARMACOKINETIC MONITORING MC PRN (16:00)
[2017-11-09] MEDS ORDERED: VANCOMYCIN PER PHARMACY MC PRN (16:00)
[2017-11-09] MEDS ORDERED: VANCOMYCIN PMX 1GM/200ML 200 ML IVPB ONE (16:00)
[2017-11-09] MEDS ORDERED: DEXAMETHASONE 10 MG in SODIUM CHLORIDE 0.9% 50 ML IV SCH (16:30)
[2017-11-10] MEDS ORDERED: ACYCLOVIR 400 MG in SODIUM CHLORIDE 0.9% 100 ML IV SCH (12:00)
== END 2017-11-10 01:29 | disposition home health service (06) | DRG 77 ==
LOC: ED 17:53 → EDIP 17:54 → ED 18:28 → 4WST 19:39 → UNDODISIN 11-06 15:08
PROVIDERS: ADMIT Hospitalist; ATTEND Hospitalist
PROC: 5A1D70Z Performance of Urinary Filtration, Intermittent, Less than 6 Hours Per Day (ICD-10-PCS; 2017-11-04)
PROC: 5A1D70Z Performance of Urinary Filtration, Intermittent, Less than 6 Hours Per Day (ICD-10-PCS; 2017-11-05)
PROC: 009U3ZX Drainage of Spinal Canal, Percutaneous Approach, Diagnostic (ICD-10-PCS; principal; 2017-11-08)
PROC: B01B1ZZ Fluoroscopy of Spinal Cord using Low Osmolar Contrast (ICD-10-PCS; 2017-11-08)
PROC: 5A1D70Z Performance of Urinary Filtration, Intermittent, Less than 6 Hours Per Day (ICD-10-PCS; 2017-11-08)
DX: I67.4 Hypertensive encephalopathy (principal); N18.6 End stage renal disease; I13.2 Hypertensive heart and chronic kidney disease with heart failure and with stage 5 chronic kidney disease, or end stage renal disease; E87.1 Hypo-osmolality and hyponatremia; I16.9 Hypertensive crisis, unspecified; J96.10 Chronic respiratory failure, unspecified whether with hypoxia or hypercapnia; R18.8 Other ascites; I50.9 Heart failure, unspecified; I25.10 Atherosclerotic heart disease of native coronary artery without angina pectoris; Z95.5 Presence of coronary angioplasty implant and graft; M16.10 Unilateral primary osteoarthritis, unspecified hip; D63.1 Anemia in chronic kidney disease; E11.22 Type 2 diabetes mellitus with diabetic chronic kidney disease; E11.42 Type 2 diabetes mellitus with diabetic polyneuropathy; G44.1 Vascular headache, not elsewhere classified; H40.9 Unspecified glaucoma; I25.2 Old myocardial infarction; I27.20 Pulmonary hypertension, unspecified; N25.0 Renal osteodystrophy; Z99.2 Dependence on renal dialysis
CPT/HCPCS: 36415; 36600; 62270; 70450; 70551; 71045; 80053; 80307; 82728; 82803; 82945; 82962; 83540; 83550; 83735; 83880; 84100; 84157; 84439; 84443; 84484; 85025; 85610; 85651; 86704; 86706; 87252; 87340; 87529; 93005; 96361; 96374; 96375; 96376; 99285; J0133; J0696; J1100; J1644; J1885; J2405; J3490; Q0162; J0360; J1200; J1815; J2060; J2310; J2765; J7030